=== PATIENT | female | born 1995 | race Caucasian/White ===

== ENCOUNTER → 2020-06-04 | Outpatient (CLI) | payer BC ==
--- NOTE | 2020-06-05 10:56 | US ---
EXAMINATION TYPE: US kidneys/renal and bladder DATE OF EXAM: 06/04/2020 COMPARISON: NONE CLINICAL HISTORY: N30.00 ACUTE CYSTITIS WITHOUT HEMATURIA,R108.14. UTI EXAM MEASUREMENTS: Right Kidney: 9.6 x 3.4 x 3.2 cm Left Kidney: 8.7 x 4.5 x 3.6 cm Right Kidney: No hydronephrosis or masses seen Left Kidney: No hydronephrosis or masses seen Bladder: wnl Bilateral Jets seen: Yes IMPRESSION: 1. Unremarkable renal ultrasound
== END | disposition home or self-care (01) ==
LOC: RADUSWWP 15:39 → EDBD 15:40
PROVIDERS: ATTEND Family Medicine
DX: N30.00 Acute cystitis without hematuria (principal); R10.814 Left lower quadrant abdominal tenderness
CPT/HCPCS: 76770